=== PATIENT | female | born 1955 | race Asian ===

== ENCOUNTER 2017-04-30 09:06 | Day surgery (SDC) | payer OTHER ==
[2017-04-28 11:10] VITALS: BMI 25.0
[~2017-04-30] VITALS: Ht 154.9 cm; Wt 57.9 kg
[2017-04-30] VITALS (12 sets, daily range): BP systolic 123–153; BP diastolic 54–64; PULSE 46–66; RESP 14–22; Ht 154.9 cm; Wt 57.9 kg
--- NOTE | 2017-04-30 07:17 | HPN ---
Date/Time of Note Date/Time of Note DATE: 04/30/17 TIME: 07:17 Interval H&P Admission Note Pt. seen H&P reviewed: No system changes NANCIE PARIS D.O. Apr 30, 2017 07:17
[~2017-04-30 09:06] MED LIST: ATROPINE 1 MG/10 ML SYRINGE IV PRN; CYCLOPENTOLATE 2% 2 ML OPH OPER SCH; DICLOFENAC 0.1% 2.5 ML OPH OPER SCH; DIPHENHYDRAMINE 50 MG INJ IV PRN; EPHEDrine SULFATE 50 MG/5 ML SYG IV PRN; FENTAnyl 50 MCG/ML VIAL IV PRN; HYDROmorphONE (0.2 MG/ML) 10ML SYG IV PRN; LABETALOL HCL 20MG INJ IV PRN; LACTATED RINGER'S 1,000 ML IV SCH; LIDOCAINE 3.5% GEL TUBE OPER ONE; MEPERIDINE 25 MG INJ IV PRN; MIDAZOLAM 1 MG/ML 2 ML INJ IV PRN; MOXIFLOXACIN 0.5% 3 ML OPH OPER SCH; ONDANSETRON 4 MG INJ IV PRN; OXYCODONE/ACETAMINOPHEN (5/325) TAB PO PRN; PHENYLephrine 10% 5 ML OPH OPER SCH; TETRACAINE 0.5% 4 ML OPH OPER SCH; TROPICAMIDE 1% 2 ML OPH OPER SCH; TRYPAN BLUE 0.5 ML SYG IO SCH; hydrALAzine 20 MG INJ IV PRN; morphine (1 MG/ML) 10ML SYRINGE IV PRN
[2017-04-30] MEDS ORDERED: CEFAZOLIN 1 GM INJ ONE (09:29)
[2017-04-30] MEDS ORDERED: ONDANSETRON 4 MG INJ ONE (09:29)
[2017-04-30] MEDS ORDERED: CALC1CAP9 PO (09:39)
[2017-04-30] MEDS ORDERED: CELE200C PO (09:40)
[2017-04-30] MEDS ORDERED: FLUT16SP17 NASAL (09:41)
[2017-04-30] MEDS ORDERED: LORA10CA PO (09:41)
[2017-04-30] MEDS ORDERED: METF1000 PO (09:42)
[2017-04-30] MEDS ORDERED: INSU200I SQ (09:42)
[2017-04-30] MEDS ORDERED: ACET-141 PO (09:43)
[2017-04-30] MEDS ORDERED: FAMO-96 PO (09:43)
[2017-04-30] MEDS ORDERED: BENA5TAB2 PO (09:44)
[2017-04-30] MEDS ORDERED: BASAGLAR SUBCUTANE (09:45)
[2017-04-30] MEDS ORDERED: ATOR20TA38 PO (09:45)
[2017-04-30] MEDS ORDERED: ASPI-664 PO (09:49)
[2017-04-30] MEDS ORDERED: CARBACHOL 0.01% 1.5 ML OPH INJ ONE (09:57)
[2017-04-30] MEDS ORDERED: LIDOCAINE 2%/EPI 30 ML INJ ONE (09:57)
[2017-04-30] MEDS ORDERED: TOBRAMYCIN 0.3% 3.5 GM OPH OINT ONE (09:58)
[2017-04-30] MEDS ORDERED: NA HYALURONATE/CHONDROITIN 0.5 ML SYG ONE (09:58)
[2017-04-30] MEDS ORDERED: EPINEPHrine 1 MG INJ ONE (09:58)
[2017-04-30] MEDS ORDERED: LIDOCAINE 2%/EPI MPF (SDV) 20 ML VIAL INJ ONE ×2 (10:15)
[2017-04-30] MEDS ORDERED: LIDOCAINE 2% (SDV) 5 ML INJ INJ ONE (10:15)
[2017-04-30] MEDS ORDERED: HYALURONATE/CHONDROITIN 1ML OPH INJ IO ONE (10:15)
[2017-04-30] MEDS ORDERED: NA HYALURONATE/CHONDROITIN 0.5 ML SYG RIGHT EYE ONE ×2 (10:15→11:09)
[2017-04-30] MEDS ORDERED: TOBRAMYCIN 0.3% 3.5 GM OPH OINT RIGHT EYE ONE (11:20)
[2017-04-30] MEDS ORDERED: TETRACAINE 0.5% 4 ML OPH ONE (11:22)
[2017-04-30] MEDS ORDERED: TETRACAINE 0.5% 4 ML OPH RIGHT EYE ONE (11:37)
[2017-04-30] MEDS ORDERED: HYALURONATE/CHONDROITIN 1ML OPH INJ ONE (11:52)
[2017-04-30] MEDS ORDERED: ACETAMINOPHEN 325 MG TAB PO ONE (13:30)
--- NOTE | 2017-05-17 10:58 | OPR ---
DATE OF OPERATION: PREOPERATIVE DIAGNOSIS: Senile cataract, right eye. POSTOPERATIVE DIAGNOSIS: Senile cataract, right eye. OPERATION PERFORMED: Cataract extraction via phacoemulsification and intraocular lens implantation. SURGEON: Chen Mejia DO ANESTHESIOLOGIST: ANESTHESIA: MAC. CONSENT: The patient was given all information regarding possible outcomes of the surgery and pros and cons for cataract surgery. The patient was explained the possibility of multiple complications which including but not limited to bleeding, infection, loss of nucleus, loss of intraocular lens and dislocation lens, retinal detachment, loss of vision, loss of the eye as an organ. The patient understood, as well as her family and consent is signed. OPERATIVE PROCEDURE: The patient brought to the operating room in stable condition, placed in supine position on operating table and her right eye was prepped for cataract surgery in routine sterile technique. Clear corneal incision was done with keratome which was followed by injection of Lidocaine with epinephrine preservative-free. This was followed by injection of Viscoat agent. Capsulorrhexis was performed with cystotome and retractor forceps. Then hydrodissection, hydrodelination was done with balance of solution. Nucleus moved and rotated. Then second chop instrument was inserted to anterior chamber as well as and nucleus was divided in the fashion of horizontal and each of the pieces was successfully emulsified. Then cortex was removed with irrigation and aspiration with balance of solution. There was some instability of posterior noticed, therefore viscus Viscoat was injected into sulcus and Sam lens SN60AC 14.5 diopter was inserted into the sulcus. The lens rotated very well. Then Viscoat agent was removed, irrigation and aspiration. Air bubble was injected in anterior chamber as well as One 10-0 nylon suture was placed on the wound and TobraDex ointment instilled into conjunctiva sac and ice was placed over closed eyelids Dictated By: Chen Mejia DO /[email or web address] /Document#: [id number]
== END 2017-04-30 13:45 | disposition home or self-care (01) ==
LOC: SDS 09:06
PROVIDERS: ATTEND Ophthalmology
DX: H25.9 Unspecified age-related cataract (principal); E78.5 Hyperlipidemia, unspecified; E11.9 Type 2 diabetes mellitus without complications; Z79.4 Long term (current) use of insulin
CPT/HCPCS: 66984; 82962; J0171; J0461; J0690; J2405; V2632; Z7512; Z7610